=== PATIENT | male | born 1980 | race African-American/Black ===

== ENCOUNTER 2016-12-04 00:35 | Emergency (ER) | payer OTHER ==
[~2016-12-04] VITALS: Ht 177.8 cm; Wt 108.9 kg
[~2016-12-04 00:35] MED LIST: CYCL10TA2 PO; GUAI-107 PO; NAPR375T3 PO
[2016-12-04 00:38] VITALS: BP 172/97
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
[2016-12-04] MEDS ORDERED: CYCLOBENZAPRINE 10 MG TABLET. PO ONE (01:00)
[2016-12-04] MEDS ORDERED: HYDROcodone/APAP 5/325MG 1 TAB TABLET PO ONE (01:00)
== END 2016-12-04 01:46 | disposition home or self-care (01) ==
LOC: ER 00:35
DX: G89.29 Other chronic pain (principal); M54.9 Dorsalgia, unspecified; R05 Cough
CPT/HCPCS: 99283

== ENCOUNTER 2018-07-29 11:41 | Emergency (ER) | payer SELFPAY ==
[~2018-07-29] VITALS: Ht 177.8 cm; Wt 113.4 kg
[~2018-07-29 11:41] MED LIST changes: -GUAI-107 PO; +GUAI-108 PO; +NAPR-695 PO; -NAPR375T3 PO
[2018-07-29 11:45] VITALS: BP 169/99
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
[2018-07-29] MEDS: IBUPROFEN 600 MG TABLET. PO ONE (12:28)
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
== END 2018-07-29 12:51 | disposition home or self-care (01) ==
LOC: ER 11:41
DX: M54.2 Cervicalgia (principal); M54.5 Low back pain; V89.2XXA Person injured in unspecified motor-vehicle accident, traffic, initial encounter; Y93.89 Activity, other specified; Y92.410 Unspecified street and highway as the place of occurrence of the external cause; Y99.8 Other external cause status
CPT/HCPCS: 72040; 72100; 99283

== ENCOUNTER 2019-03-18 01:58 | Emergency (ER) | payer SELFPAY ==
[~2019-03-18] VITALS: Ht 177.8 cm; Wt 113.4 kg
[2019-03-18 02:00] VITALS: BP 146/99
[2019-03-18] MEDS ORDERED: HYDR-3164 PO (02:41)
[2019-03-18] MEDS ORDERED: CYCL10TA2 PO (02:41)
--- NOTE | 2019-03-18 02:41 | PHYS DOC ---
Past Medical History Past Medical History: No Pertinent History Past Surgical History: No Surgical History Alcohol Use: None Drug Use: None Adult General Chief Complaint Chief Complaint: LOWER BACK PAIN OR INJURY HPI HPI Patient is a 38 year old male who presents with complaining of several chronic problems including sore throat and change of voice and back pain. Patient complaining of intermittent episodes of low back pain for 1 month and intermittent episodes of sore throat and change of voice for one month that did not get better with medical treatment given in different emergency rooms. Review of Systems Review of Systems Constitutional: Denies fever or chills [] Eyes: Denies change in visual acuity, redness, or eye pain [] HENT: Denies nasal congestion, reports sore throat Respiratory: Denies cough or shortness of breath [] Cardiovascular: No additional information not addressed in HPI [] GI: Denies abdominal pain, nausea, vomiting, bloody stools or diarrhea [] : Denies dysuria or hematuria [] Musculoskeletal: Reports back pain Integument: Denies rash or skin lesions [] Neurologic: Denies headache, focal weakness or sensory changes [] Endocrine: Denies polyuria or polydipsia [] All other systems were reviewed and found to be within normal limits, except as documented in this note. Current Medications Current Medications Current Medications Medications (Trade) Dose Ordered Sig/Lore Start Time Stop Time Status Last Admin Dose Admin Acetaminophen/ Hydrocodone Bitart (Lortab 5/325) 2 tab 1X ONCE 03/18/19 03:00 03/18/19 02:44 DC 03/18/19 02:31 2 TAB Allergies Allergies Allergies Coded Allergies Type Severity Reaction Last Updated Verified No Known Drug Allergies 08/10/13 No Physical Exam Physical Exam Constitutional: Well developed, well nourished, mild distress, non-toxic appearance. [] HENT: Normocephalic, atraumatic. Eyes: PERRLA, EOMI, conjunctiva normal, no discharge. [] Neck: Normal range of motion, no tenderness, supple, no stridor. [] Cardiovascular:Heart rate regular rhythm, no murmur [] Lungs & Thorax: Bilateral breath sounds clear to auscultation [] Abdomen: Bowel sounds normal, soft, no tenderness, no masses, no pulsatile masses. [] Skin: Warm, dry, no erythema, no rash. [] Back: Right lower back paraspinal muscular spasm and tenderness Extremities: No tenderness, no cyanosis, no clubbing, ROM intact, no edema. [] Neurologic: Alert and oriented X 3, no focal deficits noted. [] Psychologic: Affect normal, judgement normal, mood normal. [] Current Patient Data Vital Signs Vital Signs Date Time Temp Pulse Resp B/P (MAP) Pulse Ox O2 Delivery O2 Flow Rate FiO2 03/18/19 02:00 98.6 82 18 146/99 (115) 99 Room Air 98.6 EKG EKG [] Radiology/Procedures Radiology/Procedures [] Course & Med Decision Making Course & Med Decision Making discharge: I've spoken with the patient and/or caregivers. I've explained the patient's condition, diagnosis and treatment plan based on information available to me at this time. I've answered the patient's and/or caregivers questions and addressed any concerns. The patient and/or caregivers have a good understanding the patient's diagnosis, condition and treatment plan as can be expected at this point. Vital signs have been stabilized. The patient's condition is stable for discharge from the emergency department. The patient will pursue further outpatient evaluation with her primary care provider or other designated consulting physician as outlined in the discharge instructions. Patient and/or caregivers are agreeable to this plan of care and follow-up instructions have been explained in detail. The patient and/or caregivers have received these instructions in written format and expressed understanding of these discharge instructions. The patient and her caregivers are aware that if any significant change in condition or worsening of symptoms should prompt him to immediately return to this of the closest emergency department. If an emergent department is not readily available I would encourage him to call 911. Natasha Disclaimer Dragon Disclaimer This electronic medical record was generated, in whole or in part, using a voice recognition dictation system. Departure Departure Impression: Primary Impression: Chronic low back pain Additional Impression: Chronic sore throat Disposition: HOME, SELF-CARE (at 0240) Condition: STABLE Patient Instructions: Back Pain, Adult, Sore Throat Additional Instructions: Drink plenty of liquids Follow-up with your primary care physician in 2-3 days Return to ER if not getting better Scripts Hydrocodone/Apap 5-325 (NORCO 5-325 TABLET) 1 Each Tablet 1 TAB PO PRN Q6HRS PRN for PAIN, #10 TAB 0 Refills Prov: GABINO DOMINGO MD 03/18/19 Cyclobenzaprine Hcl (CYCLOBENZAPRINE HCL) 10 Mg Tablet 1 TAB PO TID, #21 TAB Prov: GABINO DOMINGO MD 03/18/19 Problem Qualifiers Primary Impression: Chronic low back pain Back pain laterality: bilateral Sciatica presence: unspecified whether sciatica present Qualified Codes: M54.5 - Low back pain; G89.29 - Other chronic pain GABINO DOMINGO MD Mar 18, 2019 02:41
[2019-03-18] MEDS ORDERED: HYDROcodone/APAP 5/325MG 1 TAB TABLET PO ONE (03:00)
== END 2019-03-18 02:44 | disposition home or self-care (01) ==
LOC: ER 01:58 → MERGE 01:58 → ER 02:44
DX: G89.29 Other chronic pain (principal); M54.5 Low back pain; J31.2 Chronic pharyngitis
CPT/HCPCS: 99283

== ENCOUNTER 2021-10-31 03:15 | Emergency (ER) | payer SELFPAY ==
[~2021-10-31] VITALS: Ht 177.8 cm; Wt 113.6 kg
[~2021-10-31 03:15] MED LIST changes: +CYCL10TA19 PO; -CYCL10TA2 PO; +HYDR-3164 PO
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
[2021-10-31 06:12] LABS: BASO # 0.1 x10^3/uL (0.0-0.2); BASO % 1 % (0-3); CALCIUM 9.1 mg/dL (8.5-10.1); CREATININE 0.9 mg/dL (0.7-1.3); EOS % 12 % (0-3); GFR 113.7; HEMATOCRIT 41.8 % (39.0-53.0); HEMOGLOBIN 13.3 g/dL (13.0-17.5); LYMPH # 2.9 x10^3/uL (1.0-4.8); LYMPH % 33 % (24-48); MEAN CORPUSCULAR HEMOGLOBIN 25 pg (25-35); MEAN CORPUSCULAR HGB CONC 32 g/dL (31-37); MEAN CORPUSCULAR VOLUME 80 fL (79-100); MONO # 0.5 x10^3/uL (0.0-1.1); MONO % 6 % (0-9); NEUT # 4.3 x10^3/uL (1.8-7.7); NEUT % 49 % (31-73); PLATELET COUNT 317 x10^3/uL (140-400); POTASSIUM 4.3 mmol/L (3.5-5.1); RED BLOOD COUNT 5.25 x10^6/uL (4.30-5.70); RED CELL DISTRIBUTION WIDTH 14.8 % (11.5-14.5); WHITE BLOOD COUNT 8.9 x10^3/uL (4.0-11.0)
[2021-10-31 06:18] LABS: ALBUMIN 3.5 g/dL (3.4-5.0); TOTAL BILIRUBIN 0.3 mg/dL (0.2-1.0)
--- NOTE | 2021-10-31 07:13 | RAD ---
Bilateral lower extremity venous Doppler dated 10/31/2021 7:09 AM COMPARISON: none. CLINICAL INDICATION: . Reason: lower leg swelling/pain / Spl. Instructions: / History: FINDINGS: Grayscale, color-flow and spectral waveform analysis performed to include the deep venous system of b ilateral lower extremity. There is normal compressibility, phasicity and augmentation of flow through out. No filling defects are seen. IMPRESSION: No evidence of bilateral lower extremity deep vein thrombosis. Electronically signed by: Kaiden Amador MD (10/31/2021 7:10 AM) [facility]
[2021-10-31] MEDS ORDERED: FURO20TA3 PO (07:48)
[2021-10-31 08:04] VITALS: BP 147/74
--- NOTE | 2021-11-02 11:59 | EKG ---
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
== END 2021-10-31 08:06 | disposition home or self-care (01) ==
LOC: ER 03:15
DX: R60.0 Localized edema (principal); F17.200 Nicotine dependence, unspecified, uncomplicated
CPT/HCPCS: 36415; 71045; 80053; 83880; 84484; 85025; 93005; 93970; 99285